=== PATIENT | male | born 1965 | race African-American/Black ===

== ENCOUNTER 2018-05-05 21:31 | Inpatient (IN) | payer OTHER ==
[~2018-05-05] VITALS: Ht 190.5 cm; Wt 150.7 kg
--- NOTE | ~2018-05-05 | EKG ---
[address] [place] [address] ELECTROCARDIOGRAM REPORT Name: JUAQUIN POLLACK Room #: 212-P [facility] IN M.R.#: [id number] Admission: 05/06/18 Attend Phys: Kvng De La O MD Discharge: Date of : 69 Report #: [id number] THIS REPORT FOR: //name// 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
--- NOTE | ~2018-05-05 | HC ---
[facility] [place] [address] CONSULTATION Name: JUAQUIN POLLACK Room #: 212-P [facility] IN .R.#: [id number] Admission: 05/06/18 Attend Phys: Kvng De La O MD Discharge: Date of : 69 Report #: [id number] THIS REPORT FOR: //name// CC: FAM physician/PCP Kvng De La O TYPE OF REPORT: Pulmonary consultation. REFERRING PHYSICIAN: Kvng De La O M.D. HISTORY OF PRESENT ILLNESS: The patient is a 52-year-old -[place] male who presents to the Emergency Room with right-sided chest pain and dyspnea. A pulmonary consultation was requested. The patient has a significant pulmonary history. He has sarcoidosis, COPD, pulmonary embolus with prior IVC filter placement. He normally goes to [facility] for his care. He states that he was diagnosed with sarcoidosis 5 years ago. He has not been on any treatment until recently. He was given a medication. He does not recall the name. He was also diagnosed with pulmonary embolus recently. He has an IVC filter placed. With multiple medical problems, inability to care for self, he has been at a alf at [facility]. He was in his usual state of health until about a week ago when he started developed episodic right-sided chest wall pain. Denies any fever, night sweats or chills or productive cough. He is oxygen dependent and he is on 4 liters of O2. PAST MEDICAL HISTORY: As mentioned above, history of COPD, oxygen dependent, DVT and pulmonary embolus as mentioned above, status post IVC filter placement, hypertension, hyperlipidemia and the patient states he had 3 stents placed. ALLERGIES: None to medications. HOME MEDICATIONS: Include warfarin, hydrochlorothiazide, Zestril, Symbicort, Lipitor, Lexapro, Desyrel, Abilify, Tylenol and hydrocodone. FAMILY HISTORY: Both parents and they both had heart disease. SOCIAL HISTORY: He is single, has no children. He has smoked, but quit 2 years ago. Denies any alcohol use. 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 [address] [place] [address] CONSULTATION Name: JUAQUIN POLLACK Room #: 212-P [facility] IN ..#: [id number] Admission: 05/06/18 Attend Phys: Kvng De La O MD Discharge: Date of : 69 Report #: [id number]. REVIEW OF SYSTEMS: As mentioned above. Notable for progressive weakness. Otherwise, 10-point system review were negative. PHYSICAL EXAMINATION: GENERAL: He is awake, alert, in no apparent distress. VITAL SIGNS: Temperature is 98 degrees Fahrenheit, pulse is 90, respiratory rate is 18, blood pressure 130/90 mmHg and saturation 92%. HEENT: Normocephalic and atraumatic. NECK: Supple without lymphadenopathy or thyromegaly. CHEST: Breath sounds are fair. Bilateral crackles. No wheezes. CARDIOVASCULAR: Normal S1 and S2. There are no murmurs or gallop. There is no JVDs. No carotid bruit. Pulses are 2+/4+ bilaterally. ABDOMEN: Obese, soft and nontender. No organomegaly or masses felt. GENITOURINARY: Deferred. RECTAL: Deferred. EXTREMITIES: There is no cyanosis or clubbing, but remarkable for 1 or 2+ lower extremity edema, greater in the right than the left. NEUROLOGICAL: Grossly intact. RADIOLOGICAL DATA: CT chest angiogram revealed no evidence of pulmonary embolus, patchy bilateral infiltrates is noted, hilar and mediastinal adenopathy is noted along with evidence of calcification suggestive of granulomatous process, prominent ascending aorta measuring 4.5 cm in diameter. Note that the exam was felt to be limited for evaluation of pulmonary embolus. Procalcitonin level was normal. EKG was grossly unremarkable. LABORATORY DATA: Electrolytes were normal. WBC of 6200, hemoglobin 12.5 and platelets are normal. WBC 7200, hemoglobin 12.7 and platelets are normal. INR is 2.5. IMPRESSION: 1. Pleuritic chest pain, dyspnea in this 52-year-old -[place] male. He has a history of sarcoidosis, chronic obstructive pulmonary disease and pulmonary embolus. He is therapeutic on his Coumadin. His CT chest angiogram as noted above showing no obvious evidence of pulmonary embolus. Etiology likely related to exacerbation of his sarcoidosis. Pneumonia is felt to be less likely. 2. Sarcoidosis diagnosed about 5 years ago with questionable exacerbation recently. He has never been treated until recently, though he does not recall the name of the medication. 3. History of chronic obstructive pulmonary disease, likely related to sarcoid involvement of the airways. 4. History of pulmonary embolus or deep venous thrombosis, status post inferior vena cava filter placement and he is also on anticoagulation. [facility] [address] [place] [address] CONSULTATION Name: JUAQUIN POLLACK Room #: 212-P ADM IN M.R.#: [id number] Admission: 05/06/18 Attend Phys: Kvng De La O MD Discharge: Date of : 69 Report #: [id number] 5. Exaggerated obesity. RECOMMENDATIONS: We would suggest a trial of high dose corticosteroids, bronchodilators. Okay to continue antibiotics, but we would consider discontinuing if the patient remains afebrile, clinically stable. In terms of steroids for sarcoidosis, he may need prolonged treatment. We would continue anticoagulation for now. As mentioned above, the patient has been followed at [facility] Pulmonary Department. Thank you for this consultation. <ELECTRONICALLY SIGNED> By: Huey Adame MD 05/07/18 1637 [id number] Huey Adame MD /nt
[~2018-05-05 21:31] MED LIST: ABILIFY20 MG PO; ACETAMINOPHEN325 M1 PO; COUMADIN6 MG PO; HYDROCHLOROTHIA25 M2 PO; HYDROCODONE-AP1 EAC6 PO; LEXAPRO20 MG PO; LIPITOR40 MG PO; LISINOPRIL10 MG PO; SYMBICORT160 MCG/4. PO; TRAZODONE HCL50 MG PO
[2018-05-05 21:34] VITALS: BP 104/74
[2018-05-05 21:55] LABS: ABSOLUTE NEUTROPHILS 5.2 thou/uL (1.4-8.2); BASOPHILS 0.7 % (0.0-2.0); EOSINOPHILS 1.5 % (0.0-3.0); HEMATOCRIT 39.9 % (42.0-52.0); HEMOGLOBIN 12.7 gm/dL (14.0-18.0); LYMPHOCYTES 17.3 % (24.0-44.0); MCH 24.8 pg (26.0-34.0); MCHC 31.8 g/dL (28.0-37.0); MONOCYTES 8.4 % (1.0-8.0); PLATELET COUNT 168 thou/uL (150-400); POLYS 72.1 % (36.0-66.0); RBC 5.12 mil/uL (4.50-6.00); RDW 15.2 % (10.5-14.5); WBC 7.2 thou/uL (4.0-11.0)
[2018-05-05 22:00] LABS: ANION GAP 6 mmol/L (7-16); BUN 13 mg/dL (7-18); CALCIUM 9.5 mg/dL (8.5-10.1); CHLORIDE 98 mmol/L (98-107); CO2 29 mmol/L (21-32); GLUCOSE 367 mg/dL (74-106); POTASSIUM 3.9 mmol/L (3.5-5.1); SODIUM 133 mmol/L (136-145)
[2018-05-05 22:09] LABS: TROPONIN-I < 0.04 ng/mL (<0.06)
[2018-05-05 22:11] LABS: APTT 37.3 Seconds (24.5-32.8); INR 2.5; PROTIME 25.4 Seconds (9.3-11.4)
[2018-05-06] VITALS (8 sets, daily range): BP systolic 120–152; BP diastolic 69–96
[2018-05-06 10:43] LABS: HEMATOCRIT 39.9 % (42.0-52.0); HEMOGLOBIN 12.5 gm/dL (14.0-18.0); MCH 24.5 pg (26.0-34.0); MCHC 31.4 g/dL (28.0-37.0); MCV 77.9 fL (80.0-100.0); RBC 5.12 mil/uL (4.50-6.00); RDW 15.4 % (10.5-14.5); WBC 6.2 thou/uL (4.0-11.0)
[2018-05-06 10:58] LABS: CALCIUM 8.8 mg/dL (8.5-10.1); CREATININE 1.1 mg/dL (0.7-1.3); POTASSIUM 3.4 mmol/L (3.5-5.1)
[2018-05-06 14:11] LABS: PROCALCITONIN < 0.05 ng/mL (<0.50)
[2018-05-07 03:40] LABS: CALCIUM 9.5 mg/dL (8.5-10.1); CREATININE 1.1 mg/dL (0.7-1.3)
[2018-05-07 03:44] LABS: POTASSIUM 5.2 mmol/L (3.5-5.1)
[2018-05-07 03:47] LABS: HEMATOCRIT 44.4 % (42.0-52.0); HEMOGLOBIN 13.8 gm/dL (14.0-18.0); MCH 24.8 pg (26.0-34.0); MCHC 31.2 g/dL (28.0-37.0); MCV 79.5 fL (80.0-100.0); RBC 5.58 mil/uL (4.50-6.00); RDW 15.7 % (10.5-14.5); WBC 9.3 thou/uL (4.0-11.0)
[2018-05-07 04:07] VITALS: BP 127/76
[2018-05-07 07:18] VITALS: BP 137/88
[2018-05-07 11:09] VITALS: BP 138/94
[2018-05-07 15:11] VITALS: BP 129/77
[2018-05-07 19:30] VITALS: BP 142/95
[2018-05-08 01:24] LABS: BASOPHILS 0.6 % (0.0-2.0); HEMATOCRIT 41.5 % (42.0-52.0); LYMPHOCYTES 4.4 % (24.0-44.0); MCH 24.4 pg (26.0-34.0); MCHC 31.4 g/dL (28.0-37.0); MCV 77.8 fL (80.0-100.0); MONOCYTES 4.4 % (1.0-8.0); PLATELET COUNT 178 thou/uL (150-400); POLYS 90.6 % (36.0-66.0); RBC 5.33 mil/uL (4.50-6.00); RDW 15.4 % (10.5-14.5); WBC 14.4 thou/uL (4.0-11.0)
[2018-05-08 01:32] LABS: CALCIUM 9.5 mg/dL (8.5-10.1); CREATININE 1.1 mg/dL (0.7-1.3); MAGNESIUM 2.3 mg/dL (1.8-2.4); POTASSIUM 4.7 mmol/L (3.5-5.1)
[2018-05-08 03:47] VITALS: BP 145/103
[2018-05-08 05:12] LABS: ANGIOTENSIN CONVERTNG ENZ 35 U/L (14-82)
[2018-05-08 07:37] VITALS: BP 152/103
[2018-05-08 10:59] VITALS: BP 133/81
[2018-05-08 15:03] VITALS: BP 129/82
[2018-05-08 19:41] VITALS: BP 157/100
[2018-05-09 01:07] LABS: GLYCOHEMOGLOBIN (HGB A1C) 11.5 % (4.8-5.6)
[2018-05-09 04:09] VITALS: BP 135/86
[2018-05-09 04:14] LABS: HEMATOCRIT 40.8 % (42.0-52.0); HEMOGLOBIN 12.9 gm/dL (14.0-18.0); MCH 24.8 pg (26.0-34.0); MCHC 31.7 g/dL (28.0-37.0); MCV 78.3 fL (80.0-100.0); RBC 5.21 mil/uL (4.50-6.00); RDW 15.6 % (10.5-14.5); WBC 11.9 thou/uL (4.0-11.0)
[2018-05-09 04:24] LABS: CALCIUM 9.3 mg/dL (8.5-10.1); CREATININE 1.1 mg/dL (0.7-1.3); MAGNESIUM 2.3 mg/dL (1.8-2.4); POTASSIUM 4.6 mmol/L (3.5-5.1)
[2018-05-09 07:45] VITALS: BP 157/111
[2018-05-09] MEDS ORDERED: MUCINEX600 MG PO (09:56)
[2018-05-09] MEDS ORDERED: LANTUS100 UNIT/M SUBQ (09:56)
[2018-05-09] MEDS ORDERED: PREDNISONE 10 M10 MG PO (09:57)
[2018-05-09] MEDS ORDERED: AUGMENTIN 875-1 EACH PO (09:58)
== END 2018-05-09 11:45 | DRG 196 ==
LOC: ER 21:31 → EROBS 05-06 00:02 → 2N 05-06 00:02
PROVIDERS: Internal Medicine; Internal Medicine Pulmonary Disease; Nurse Practitioner Family; Physician Assistant
DX: D86.9 Sarcoidosis, unspecified (principal); J18.9 Pneumonia, unspecified organism; J96.20 Acute and chronic respiratory failure, unspecified whether with hypoxia or hypercapnia; J44.1 Chronic obstructive pulmonary disease with (acute) exacerbation; J44.0 Chronic obstructive pulmonary disease with (acute) lower respiratory infection; Z68.41 Body mass index [BMI] 40.0-44.9, adult; I10 Essential (primary) hypertension; E78.5 Hyperlipidemia, unspecified; E66.8 Other obesity; M94.0 Chondrocostal junction syndrome [Tietze]; Z86.718 Personal history of other venous thrombosis and embolism; Z86.711 Personal history of pulmonary embolism; Z87.891 Personal history of nicotine dependence; Z79.52 Long term (current) use of systemic steroids; Z95.828 Presence of other vascular implants and grafts; Z99.81 Dependence on supplemental oxygen; Z79.01 Long term (current) use of anticoagulants
CPT/HCPCS: 10081

== ENCOUNTER 2019-09-24 09:13 | Emergency (ER) | payer OTHER ==
[~2019-09-24] VITALS: Ht 190.5 cm; Wt 127.0 kg
--- NOTE | ~2019-09-24 | EMS ---
[address] [address] EMS Patient Care Report Name: POLLACKJUAQUIN Room #: REG WALTER Mccoy#: [id number] Admission: 09/24/19 Attend Phys: Discharge: Date of : 69 Report #: [id number] THIS REPORT FOR: //name// Report Transmitted: 09/24/2019 11:08 EMS Care Summary [place], [place]/[facility] Incident [id number] @ 09/24/2019 08:37 Incident Location [address] [place] [address] [address] Patient JUAQUIN POLLACK Male, 53 Years 1965 Patient Address [address] [place] [address] [place] [address] Patient History Chronic Obstructive Pulmonary Disease (COPD),Hypertension,Atrial Fibrillation,Deep Vein Thrombosis, Patient Allergies No known allergies, Patient Medications Warfarin, Chief Complaint Chest pain Disposition Transported No Lights/[place] Dispatch Reason Chest Pain (Non-Traumatic) Transported To [facility] Narrative 53 y/o male with chest pain. [facility] [address] [place] [address] EMS Patient Care Report Name: JUAQUIN POLLACK Room #: REG GerryMonet#: [id number] Admission: 09/24/19 Attend Phys: Discharge: Date of : 69 Report #: [id number] On arrival found pt in NH bed with staff and P45 on scene. Pt stated he started having chest pain last night that went away and then came back this morning. Pt stated he wanted to go to [facility] ED. EMS/P45 transferred pt to stretcher and into ambulance. Once in ambulance EMS performed a 12 lead ECG and attempted an IV. Pt had already had one 81 mg aspirin so EMS give pt an additional 234 mg. EMS monitored pt/VS/ECG en route to [facility] ED. Transferred care of pt to [facility] ED RN without incident. Initial Vitals @08:52P: 85,CO: 3,SpO2: 94,AR Suspected: false @09:07P: 81,BP: 112/76,CO: 3,SpO2: 94, @08:49P: 86,R: 22,BP: 133/88,Pain: 6/10,GCS: 15,Glucose: 96,CO: 2,SpO2: 98,Revised Trauma: 12, @09:02P: 91,BP: 116/84,CO: 4,SpO2: 95, Assessments @08:46MENTAL:No Abnormalities,SKIN:No Abnormalities,HEENT:Head/Face: No Abnormalities,Eyes: No Abnormalities,Neck/Airway: No Abnormalities,LUNG SOUNDS:General: No Abnormalities,Left Upper: No Abnormalities,Right Upper: No Abnormalities,Left Lower: No Abnormalities,Right Lower: No Abnormalities,ABDOMEN:General: No Abnormalities,Left Upper: No Abnormalities,Right Upper: No Abnormalities,Left Lower: No Abnormalities,Right Lower: No Abnormalities,PELVIS//GI:No Abnormalities,EXTREMITIES:Capillary Refill: Left Upper: < 2 Sec,Left Arm: No Abnormalities,Right Arm: No Abnormalities,Left Leg: No Abnormalities,Right Leg: No Abnormalities,PULSE:Radial: 2+ Normal,NEURO:No Abnormalities, Impression Chest Pain, Other (Non-Cardiac) Procedures @08:5212-Lead ECGResponse: UnchangedSucceeded@PTAAspirin - 81 Milligrams (mg) - Oral@08:56Aspirin - 234 Milligrams (mg) - OralResponse: Unchanged@PTAOxygen FlowRate: 4 Device: Nasal Cannula (NC) Succeeded@08:46ALS AssessmentResponse: UnchangedSucceeded@08:54Saline Lock 0cc (20 ga) Site: Hand-LeftResponse: UnchangedFailed Timeline 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,Aspirin - 81 Milligrams (mg) - Oral, 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,Oxygen FlowRate: 4 Device: Nasal Cannula (NC) Succeeded, 08:35,Call Received 08:35,Dispatch Notified 08:37,Dispatched 08:37,En Route 08:43,On Scene [facility] [address] [place] [address] EMS Patient Care Report Name: JUAQUIN POLLACK Jovanni Room #: REG WALTER Mccoy#: [id number] Admission: 09/24/19 Attend Phys: Discharge: Date of : 69 Report #: [id number] 08:46,At Patient 08:46,ALS Assessment,Response: UnchangedSucceeded, 08:49,BP: 133/88 M,PULSE: 86,RR: 22 R,SPO2: 98 Ox,ETCO2: ,B,PAIN: 6,GCS: 15, 08:52,12-Lead ECG,Response: UnchangedSucceeded, 08:52,BP: / M,PULSE: 85,RR: R,SPO2: 94 Ox,ETCO2: ,BG: ,PAIN: ,GCS: , 08:54,Saline Lock 0cc 20 ga Site: Hand-Left,Response: UnchangedFailed, 08:56,Aspirin - 234 Milligrams (mg) - Oral,Response: Unchanged 08:59,Depart Scene 09:02,BP: 116/84 M,PULSE: 91,RR: R,SPO2: 95 Ox,ETCO2: ,BG: ,PAIN: ,GCS: , 09:07,BP: 112/76 M,PULSE: 81,RR: R,SPO2: 94 Ox,ETCO2: ,BG: ,PAIN: ,GCS: , 09:08,At Destination 09:21,Call Closed Disclaimer v1.1 Copyright 2019 [email or web address] This EMS Care Summary contains data elements from the applicable legal record (which may be displayed differently). It is designed to provide pertinent information for the following purposes: continuity of care, clinical quality, and state data reporting. The complete legal record is available to ED staff and administrators of the receiving hospital in [employer] Patient Tracker. All data is provided "as is."
[~2019-09-24 09:13] MED LIST changes: +AUGMENTIN 875-1 EACH PO; +LANTUS100 UNIT/M SUBQ; +MUCINEX600 MG PO; +PREDNISONE 10 M10 MG PO
[2019-09-24 10:11] LABS: HEMATOCRIT 38.1 % (42.0-52.0); HEMOGLOBIN 11.7 gm/dL (14.0-18.0); MCH 21.8 pg (26.0-34.0); MCHC 30.6 g/dL (28.0-37.0); MCV 71.3 fL (80.0-100.0); PLATELET COUNT 233 thou/uL (150-400); RBC 5.35 mil/uL (4.50-6.00); RDW 18.5 % (10.5-14.5); WBC 5.1 thou/uL (4.0-11.0)
[2019-09-24 10:20] LABS: ANION GAP 1 mmol/L (7-16); BUN 8 mg/dL (7-18); CALCIUM 8.8 mg/dL (8.5-10.1); CHLORIDE 100 mmol/L (98-107); CO2 36 mmol/L (21-32); CREATININE 0.9 mg/dL (0.7-1.3); GLUCOSE 98 mg/dL (74-106); POTASSIUM 3.9 mmol/L (3.5-5.1); SODIUM 137 mmol/L (136-145)
[2019-09-24 10:25] LABS: APTT 46.4 Seconds (24.5-32.8); INR 3.1; PROTIME 32.2 Seconds (9.3-11.4)
[2019-09-24 10:30] LABS: ALBUMIN 3.3 g/dL (3.4-5.0); MAGNESIUM 2.1 mg/dL (1.8-2.4); SGOT 27 U/L (15-37); SGPT 35 U/L (30-65); TOTAL BILIRUBIN 0.3 mg/dL (<0.1-1.0); TOTAL PROTEIN 7.3 g/dL (6.4-8.2); TROPONIN-I <0.06 ng/mL (<0.06)
[2019-09-24 10:32] LABS: ABSOLUTE NEUTROPHILS 3.1 thou/uL (1.4-8.2); ANISOCYTOSIS 2+; HYPOCHROMASIA 1+; MICROCYTES 2+; OVALOCYTES FEW
[2019-09-24] MEDS ORDERED: PREDNISONE 20 M20 MG PO (10:37)
[2019-09-24] MEDS ORDERED: AUGMENTIN 875-1 EACH PO (10:37)
[2019-09-24 11:11] VITALS: BP 140/92
--- NOTE | 2019-09-25 11:01 | EKG ---
[address] [place] [address] ELECTROCARDIOGRAM REPORT Name: JUAQUIN POLLACK [id number] Admission: 09/24/19 Attend Phys: Discharge: 09/24/19 Date of : 69 Report #: [id number] THIS REPORT FOR: //name// [facility] ED Test Date: 2019-09-24 Test Time: 09:22:20 Pat Name: JUAQUIN POLLAKC Department: Room: Gender: Allergy Physician: RAJINDER : 1965 Requested By: Christopher Escalera Order Number: [id number] MD: James Collier Measurements Intervals [place] Rate: 85 P: 46 MD: 167 QRS: 57 QRSD: 75 T: 35 QT: 364 QTc: 433 Interpretive Statements Sinus rhythm No significant abnormality Compared to ECG 05/05/2018 21:36:23 Sinus tachycardia no longer present Electronically Signed On 09-25-2019 11:01:03 CDT by James Collier [email or web address] <ELECTRONICALLY SIGNED> By: James Collier MD, FACC 09/25/19 1101 0922 1 James Collier MD, FACC /EPI
== END 2019-09-24 12:10 | disposition home or self-care (01) ==
LOC: ER 09:13
PROVIDERS: Emergency Medicine
DX: J44.0 Chronic obstructive pulmonary disease with (acute) lower respiratory infection (principal); J20.9 Acute bronchitis, unspecified; R07.89 Other chest pain; I10 Essential (primary) hypertension; E78.5 Hyperlipidemia, unspecified; G47.30 Sleep apnea, unspecified; Z86.718 Personal history of other venous thrombosis and embolism; Z86.711 Personal history of pulmonary embolism; Z95.5 Presence of coronary angioplasty implant and graft; Z79.01 Long term (current) use of anticoagulants; Z87.891 Personal history of nicotine dependence